=== PATIENT | female | born 1965 | race Caucasian/White ===

== ENCOUNTER 2020-12-24 14:18 | Emergency (ER) | payer MEDICAID ==
[~2020-12-24] VITALS: Ht 157.5 cm; Wt 62.1 kg
[2020-12-24 14:20] VITALS: BP_SYST 138
[2020-12-24] MEDS ORDERED: DIPHENHYDRAMINE INJ 50 MG/ML VIAL IVP ONE (15:30)
[2020-12-24] MEDS ORDERED: METOCLOPRAMIDE HCL 10 MG/2 ML VIAL IVP ONE (15:30)
[2020-12-24] MEDS ORDERED: KETOROLAC TROMETHAMINE 30 MG VIAL IVP ONE (17:00)
[2020-12-24] MEDS ORDERED: IBUP-1969 PO (17:00)
[2020-12-24] MEDS ORDERED: TRAM50TA2 PO (17:00)
[2020-12-24 17:16] VITALS: BP_SYST 122
== END 2020-12-24 17:18 | disposition home or self-care (01) ==
LOC: SED 14:18
DX: G43.909 Migraine, unspecified, not intractable, without status migrainosus (principal)
CPT/HCPCS: 70450; 76376; 96374; 96375; 99284; J1200; J1885; J2765